=== PATIENT | male | born 1980 | race Caucasian/White ===

== ENCOUNTER 2019-03-21 08:54 | Emergency (ER) | payer BC ==
[~2019-03-21] VITALS: Ht 182.9 cm; Wt 113.4 kg
[2019-03-21 08:56] VITALS: BP 110/69; Ht 182.9 cm; Wt 113.4 kg
== END 2019-03-21 10:00 | disposition home or self-care (01) ==
LOC: ED 08:54
DX: S76.111A Strain of right quadriceps muscle, fascia and tendon, initial encounter (principal); W01.0XXA Fall on same level from slipping, tripping and stumbling without subsequent striking against object, initial encounter; Y93.89 Activity, other specified; Y92.89 Other specified places as the place of occurrence of the external cause; Y99.8 Other external cause status